=== PATIENT | female | born 1975 | race African-American/Black ===

== ENCOUNTER 2018-06-05 11:41 | Inpatient (IN) | payer OTHER ==
[2018-06-05 12:32] VITALS: BMI 26.5
--- NOTE | 2018-06-05 15:13 | HP ---
COWS - Scale Resting Pulse: 1= [place] 81-100 Sweatin= Chills/Flushing Restless Observation: 0= Sits Still Pupil Size: 0= Normal to Room Light Bone or Joint Aches: 2= Severe Diffuse Aches Runny Nose/ Eye Tearin= Runny Nose/Eyes GI Upset > 30mins: 2= Nausea/Diarrhea Tremor Observation: 1= Tremor [place], Not Seen Yawning Observation: 0= None Anxiety or Irritability: 2=Irritable/Anxious Goose Flesh Skin: 0=Smooth Skin COWS Score: 11 CIWA Score - Admission Criteria OAS Guidelines: Admission for Medically Managed Detox: Requires at least one of the followin. CIWA greater than 12 2. Seizures within the past 24 hours 3. Delirium tremens within the past 24 hours 4. Hallucinations within the past 24 hours 5. Acute intervention needed for co occurring medical disorder 6. Acute intervention needed for co occurring psychiatric disorder 7. Severe withdrawal that cannot be handled at a lower level of care (continued vomiting, continued diarrhea, abnormal vital signs) requiring intravenous medication and/or fluids 8. Admission ROS [facility] Chief Complaint: PATIENT PRESENTS WITH HEROIN WITHDRAWAL SX. Allergies/Adverse Reactions: Allergies Allergy/AdvReac Type Severity Reaction Status Date / Time aspirin Allergy Severe Difficulty Verified 06/05/18 14:56 Breathing Sulfa (Sulfonamide Allergy Severe Verified 06/05/18 14:58 Antibiotics) amoxicillin Allergy Verified 06/05/18 14:57 NSAIDS (Non-Steroidal Allergy Verified 06/05/18 14:58 Anti-Inflamma History of Present Illness: PATIENT PRESENTS WITH HEROIN WITHDRAWAL SX AND IS NEW TO [facility]. PATIENT HAS DONE DETOX IN PAST IN OTHER FACILITIES BUT NAMES OF FACILITIES NOT PROVIDED. PATIENT STARTED SNIFFING/INJECTING HEROIN 20 YEARS AGO. PATIENT INJECTS 4 BAGS OF HEROIN DAILY, LAST TIME SHE USED WAS LAST NIGHT. PATIENT UDS + FENTANYL/OPI. PATIENT DENIES H/O OVERDOSE. PATIENT TREATED IN [place] [facility] TODAY FOR RIGHT FINGER PAIN AND SWELLING AFTER CUT. PER ER NOTE, WOUND IS HEALING NICELY AND PATIENT REFUSED PAIN MEDS. GIVEN ANTIBIOTICS AND BOOSTRIX UTD. PATIENT DOES NOT HAVE ANTIBIOTICS WITH HER AND UNSURE OF NAME OF ABX. PATIENT IS SOCIAL DRINKER. DENIES USE OF OTHER SUBSTANCES. PMH INCLUDES HTN AND DM. PATIENT DENIES SI/HI AND SUICIDE ATTEMPTS. +TOBACCO USE. DENIES PMH OF MENTAL ILLNESS. PATIENT STATES SHE FORGOT MEDICATION NAME FOR HER HTN. REPORTS TAKING JANUVIA 50MG DAILY , LAST DOSE 06/03/18 AND TRULICITY 0.75MG INJECTION ONCE WEEKLY. PER PHARMACY LAST DISPENSE OF MEDICATION 06/02/18. PATIENT DOES NOT HAVE MEDICATION WITH HER BUT IS NOT DUE UNTIL 06/09/18. PATIENT STATES SHE WILL RESUME MEDICATION UPON DISCHARGE WHEN SHE GOES HOME. Exam Limitations: No Limitations - Ebola screening Have you traveled outside of the country in the last 21 days: No Have you had contact with anyone from an Ebola affected area: No Have you been sick,other than usual withdrawal symptoms: No Do you have a fever: No - Review of Systems Constitutional: Chills, Night Sweats, Unintentional Wgt. Loss EENT: reports: Nose Congestion Respiratory: reports: Cough Cardiac: reports: No Symptoms Reported GI: reports: Diarrhea, Nausea, Poor Fluid Intake, Abdominal cramping : reports: No Symptoms Reported Musculoskeletal: reports: Back Pain, Joint Pain, Muscle Pain Integumentary: reports: Other (S/P CUT TO RIGHT INDEX FINGER.) Neuro: reports: No Symptoms reported Endocrine: reports: Unexplained Weight Loss Hematology: reports: No Symptoms Reported Psychiatric: reports: Agitated, other (UNSURE OF DATE, KNOWS NAME AND PLACE ( [place])) Patient History - Patient Medical History Hx Anemia: No Hx Asthma: Yes Hx Chronic Obstructive Pulmonary Disease (COPD): No Hx Cancer: No Hx Cardiac Disorders: No Hx Congestive Heart Failure: No Hx Hypertension: Yes Hx Hypercholesterolemia: No Hx Pacemaker: No HX Cerebrovascular Accident: No Hx Seizures: No Hx Dementia: No Hx Diabetes: Yes Hx Gastrointestinal Disorders: No Hx Liver Disease: No Hx Genitourinary Disorders: No Hx Sexually Transmitted Disorders: No Hx Renal Disease (ESRD): No Hx Thyroid Disease: No Hx Human Immunodeficiency Virus (HIV): No (REFUSED TESTING, LAST TEST 2019- NEGATIVE) Hx Hepatitis C: No Hx Depression: No Hx Suicide Attempt: No Hx Bipolar Disorder: No Hx Schizophrenia: No - Patient Surgical History Past Surgical History: Yes Hx Section: Yes ( X 2) Anesthesia Reaction: Yes (REPORTS ALLERGIC REACTION) - PPD History Previous Implant?: Yes Documented Results: Negative w/o proof PPD to be Administered?: Yes - Reproductive History Patient is a Female of Child Bearing Age (11 -55 yrs old): Yes Patient : No - Smoking Cessation Smoking history: Current every day smoker Have you smoked in the past 12 months: Yes Aproximately how many cigarettes per day: 5 Hx Chewing Tobacco Use: No Initiated information on smoking cessation: Yes 'Breaking Loose' booklet given: 06/05/18 - Substance & Tx. History Hx Alcohol Use: No Hx Substance Use: Yes Substance Use Type: Heroin Hx Substance Use Treatment: Yes - Substances Abused Heroin Route: Injection Frequency: Daily Amount used: 4 BAGS Age of first use: 23 Date of Last Use: 06/04/18 Family Disease History - Family Disease History Family Disease History: Diabetes: Father, Mother, Heart Disease: Father, Mother Admission Physical Exam S - Vital Signs Vital Signs: Vital Signs - 24 hr 06/05/18 12:26 Temperature 98.5 F Pulse Rate 84 Respiratory 18 Rate Blood Pressure 158/94 - Physical General Appearance: Yes: Appropriately Dressed, Thin, Tremorous (MILD TREMORS FELT), Irritable HEENTM: Yes: Hearing grossly Normal, Normocephalic, Normal Voice, LIZ ( [place] PUPILS), Pharynx Normal, Nasal Congestion Respiratory: Yes: Chest Non-Tender, Lungs Clear, Normal Breath Sounds, No Respiratory Distress, No Accessory Muscle Use Neck: Yes: No masses,lesions,Nodules, Supple, Trachea in good position Breast: Yes: Breast Exam Deferred Cardiology: Yes: Regular Rhythm, Regular Rate, S1, S2 Abdominal: Yes: Normal Bowel Sounds, Non Tender, Flat, Soft Genitourinary: Yes: Within Normal Limits Back: Yes: Muscle Spasm Musculoskeletal: Yes: full range of Motion, Gait Steady, Back pain, Muscle Pain Extremities: Yes: Normal Range of Motion, Non-Tender, Tremors (MILD TREMORS FELT ) 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 TREATED AT [facility]. PATIENT DID NOT WANT DRESSING REMOVED. WAS ABLE TO SEE TIP OF FINGER WITH HEALING LACERATION. NO VISIBLE REDNESS OR DISCHARGE.) Lymphatic: Yes: Within Normal Limits - Diagnostic (1) Opioid dependence with withdrawal Current Visit: Yes Status: Acute (2) Diabetes 1.5, managed as type 2 Current Visit: Yes Status: Chronic (3) HTN (hypertension) Current Visit: Yes Status: Chronic Qualifiers: Hypertension type: unspecified Qualified Code(s): I10 - Essential (primary ) hypertension (4) Laceration of finger Current Visit: Yes Status: Acute Qualifiers: Encounter type: subsequent encounter Finger: index finger Damage to nail status: unspecified Foreign body presence: unspecified Laterality: right Qualified Code(s): S61.210D - Laceration without foreign body of right index finger without damage to nail, subsequent encounter (5) Tobacco use Current Visit: Yes Status: Chronic Cleared for Admission [facility] - Detox or Rehab [facility] Level of Care: Medically Managed Detox Regimen/Protocol: Methadone [facility] Breath Alcohol Content Breath Alcohol Content: 0 Urine Pregancy Test - Result Urine Test Results: Negative- NO Line Present Urine Drug Screen - Results Drug Screen Negative: No Urine Drug Screen Results: OPI-Opiates, FEN-Fentanyl Inpatient Rehab Admission - Rehab Decision to Admit Inpatient rehab admission?: No
[2018-06-05] MEDS ORDERED: IBUPROFEN 400 MG TABLET (FP) PO PRN (15:53)
[2018-06-05] MEDS ORDERED: NICOTINE POLACRILEX 2 MG GUM BC PRN (15:53)
[2018-06-05] MEDS ORDERED: P-EPHED 60MG/TRIPROLIDI 2.5MG TABLET PO PRN (15:53)
[2018-06-05] MEDS ORDERED: MAG HYDROX/AL HYDROX/SIMETH 30 ML UNIT-DOSE CUP PO PRN (15:53)
[2018-06-05] MEDS ORDERED: MAGNESIUM CITRATE 300 ML BOTTLE PO PRN (15:53)
[2018-06-05] MEDS ORDERED: MENTHOL/PHENOL 1 EACH UD MM PRN (15:53)
[2018-06-05] MEDS ORDERED: guaiFENesin/D-METHORPHAN HB 10 ML UNIT-DOSE CUPS PO PRN (15:53)
[2018-06-05] MEDS ORDERED: MAGNESIUM HYDROX 2400MG/30ML ORAL SUSPENSION 30 ML CUP PO PRN (15:53)
[2018-06-05] MEDS ORDERED: LOPERAMIDE HCL 2 MG CAPSULE PO PRN (15:53)
[2018-06-05] MEDS ORDERED: cloNIDine HCL 0.1 MG TABLET PO ONE (19:45)
[2018-06-05] MEDS ORDERED: METHADONE HCL 10 MG TABLET (FOR DETOX USE ONLY) PO ONE ×2 (19:45→23:00)
[2018-06-05] MEDS: diazePAM 5 MG TABLET PO PRN (20:35)
[2018-06-05] MEDS: CLINDAMYCIN HCL 150 MG CAPSULE (FP) PO SCH ×2 (22:41→23:10)
[2018-06-05] MEDS: THIAMINE HCL 100 MG TABLET (FP) PO SCH (22:42)
[2018-06-06] MEDS: CLINDAMYCIN HCL 150 MG CAPSULE (FP) PO SCH ×4 (05:51→23:04)
[2018-06-06] MEDS: PRENATAL VITAMINS W/ FOLIC ACID TABLET (FP) PO SCH (10:00)
[2018-06-06] MEDS: diazePAM 5 MG TABLET PO PRN ×3 (10:00→22:46)
[2018-06-06] MEDS ORDERED: METHADONE HCL 10 MG TABLET (FOR DETOX USE ONLY) PO ONE (10:00)
[2018-06-06] MEDS: NICOTINE 7 MG/24 HOURS TOPICAL PATCH TD SCH (10:02)
[2018-06-06] MEDS ORDERED: sitaGLIPtin PHOSPHATE 50 MG TABLET PO SCH (10:30)
--- NOTE | 2018-06-06 12:00 | PN ---
BHS COWS - Scale Resting Pulse: 0= [place] 80 or Below Sweatin=Flushed/Facial Moisture Restless Observation: 1= Difficult to Sit Still Pupil Size: 0= Normal to Room Light Bone or Joint Aches: 2= Severe Diffuse Aches Runny Nose/ Eye Tearin= Runny Nose/Eyes GI Upset > 30mins: 1= Stomach Cramp Tremor Observation of Outstretched Hands: 2= Slight Tremor Visible Yawning Observation: 2= >3x During Session Anxiety or Irritability: 2=Irritable/Anxious Goose Flesh Skin: 0=Smooth Skin COWS Score: 14 BHS Progress Note (SOAP) Subjective: irritable sweats shakes interrupted sleep vaginal foul odor discharge Objective: 06/06/18 11:58 Vital Signs Temperature 98.2 F 06/06/18 09:26 Pulse Rate 75 06/06/18 09:26 Respiratory Rate 18 06/06/18 09:26 Blood Pressure 146/95 06/06/18 09:26 O2 Sat by Pulse Oximetry (%) Laboratory Tests 06/05/18 21:53 POC Glucometer 133 ordered [email or web address], u/a pending results aaox3 ambulating no acute distress Assessment: 06/06/18 12:00 withdrawal sx Plan: continue detox increase fluids vaginal metrogel ordered januvia ordered lisinopril ordered
[2018-06-06] MEDS: LISINOPRIL 10 MG TABLET (FP) PO SCH (12:15)
--- NOTE | 2018-06-06 13:27 | EKG ---
Test Reason : Blood Pressure : / mmHG Vent. Rate : 077 BPM Atrial Rate : 077 BPM P-R Int : 128 ms QRS Dur : 086 ms QT Int : 406 ms P-R-T Axes : 051 066 047 degrees QTc Int : 459 ms NORMAL SINUS RHYTHM NONSPECIFIC T WAVE ABNORMALITY ABNORMAL ECG NO PREVIOUS ECGS AVAILABLE Confirmed by ALEXANDRO NORTH MD ([id number]) on 06/06/2018 1:27:56 PM Referred By: Confirmed By:ALEXANDRO NORTH MD
[2018-06-06] MEDS: ACETAMINOPHEN 325 MG TABLET (FP) PO PRN (14:10)
[2018-06-06 15:38] LABS: BASO % 0.6 % (0-2.0); EOS % 0.8 % (0-4.5); HEMATOCRIT 43.6 % (32.4-45.2); HEMOGLOBIN 15.2 GM/dL (10.7-15.3); LYMPH % 25.9 % (8-40); MCH 30.5 pg (25.7-33.7); MCHC 34.9 g/dl (32.0-36.0); MEAN CELL VOLUME 87.3 fl (80-96); MEAN PLT VOLUME 9.6 fl (7.5-11.1); MONO % 7.7 % (3.8-10.2); PLATELET COUNT 199 K/MM3 (134-434); RBC 4.99 M/mm3 (3.60-5.2); RDW 14.3 % (11.6-15.6); WHITE BLOOD COUNT 7.5 K/mm3 (4.0-10.0)
[2018-06-06 15:54] LABS: ALBUMIN 3.2 g/dl (3.4-5.0); ALK PHOS 91 U/L (45-117); ANION GAP 9 MMOL/L (8-16); BILIRUBIN,TOTAL 0.2 mg/dL (0.2-1); BLOOD UREA NITROGEN 10 mg/dL (7-18); CALCIUM 9.2 mg/dL (8.5-10.1); CHLORIDE 101 mmol/L (98-107); CO2 24 mmol/L (21-32); CREATININE 0.7 mg/dL (0.55-1.3); GLUCOSE,RANDOM 151 mg/dL (74-106); POTASSIUM 4.2 mmol/L (3.5-5.1); SGOT/AST 11 U/L (15-37); SGPT/ALT 27 U/L (13-61); SODIUM 134 mmol/L (136-145); TOT PROT 6.8 g/dl (6.4-8.2)
[2018-06-06 16:37] LABS: URINE APPEARANCE CLEAR; URINE BILIRUBIN NEGATIVE (<2.0 mg/dL); URINE GLUCOSE (UA) 1+ (NEGATIVE); URINE KETONE NEGATIVE (NEGATIVE); URINE LEUK ESTERASE NEGATIVE (NEGATIVE); URINE NITRITE NEGATIVE (NEGATIVE); URINE PROTEIN NEGATIVE (NEGATIVE); URINE UROBILINOGEN NEGATIVE mg/dL (0.2-1.0)
[2018-06-06 16:45] LABS: URINE COLOR LTYELLOW
[2018-06-06] MEDS: THIAMINE HCL 100 MG TABLET (FP) PO SCH (22:45)
[2018-06-06] MEDS: metroNIDAZOLE 0.75% VAGINAL GEL 70 GM TUBE VG SCH (22:46)
[2018-06-07] MEDS: CLINDAMYCIN HCL 150 MG CAPSULE (FP) PO SCH ×4 (07:49→23:37)
[2018-06-07] MEDS: sitaGLIPtin PHOSPHATE 25 MG TABLET (FP) PO SCH (07:50)
[2018-06-07] MEDS ORDERED: METHADONE HCL 5 MG TABLET (FOR DETOX USE ONLY) PO ONE (10:00)
[2018-06-07] MEDS: LISINOPRIL 10 MG TABLET (FP) PO SCH (10:53)
[2018-06-07] MEDS: NICOTINE 7 MG/24 HOURS TOPICAL PATCH TD SCH (10:53)
[2018-06-07] MEDS: PRENATAL VITAMINS W/ FOLIC ACID TABLET (FP) PO SCH (10:54)
[2018-06-07] MEDS: diazePAM 5 MG TABLET PO PRN ×2 (14:03→18:18)
--- NOTE | 2018-06-07 17:13 | PN ---
BHS COWS - Scale Resting Pulse: 1= ID 81-100 Sweatin=Flushed/Facial Moisture Restless Observation: 3= Extraneous Movement Pupil Size: 0= Normal to Room Light Bone or Joint Aches: 1= Mild Discomfort Runny Nose/ Eye Tearin= Nasal Congestion GI Upset > 30mins: 0= None Tremor Observation of Outstretched Hands: 2= Slight Tremor Visible Yawning Observation: 0= None Anxiety or Irritability: 2=Irritable/Anxious Goose Flesh Skin: 0=Smooth Skin COWS Score: 12 BHS Progress Note (SOAP) Subjective: foot pain from "my neuropathy" sweats Objective: 06/07/18 17:12 A & O x 3 ambulating steadily callus noted to foot irritable Vital Signs Temperature 91.9 F L 06/07/18 14:39 Pulse Rate 90 06/07/18 14:39 Respiratory Rate 18 06/07/18 14:39 Blood Pressure 123/74 06/07/18 14:39 O2 Sat by Pulse Oximetry (%) Laboratory Last Values WBC 7.5 K/mm3 (4.0-10.0) 06/06/18 13:23 RBC 4.99 M/mm3 (3.60-5.2) 06/06/18 13:23 Hgb 15.2 GM/dL (10.7-15.3) 06/06/18 13:23 Hct 43.6 % (32.4-45.2) 06/06/18 13:23 MCV 87.3 fl (80-96) 06/06/18 13:23 MCH 30.5 pg (25.7-33.7) 06/06/18 13:23 MCHC 34.9 g/dl (32.0-36.0) 06/06/18 13:23 RDW 14.3 % (11.6-15.6) 06/06/18 13:23 Plt Count 199 K/MM3 (134-434) 06/06/18 13:23 MPV 9.6 fl (7.5-11.1) 06/06/18 13:23 Absolute Neuts (auto) 4.9 K/mm3 (1.5-8.0) 06/06/18 13:23 Neutrophils % 65.0 % (42.8-82.8) 06/06/18 13:23 Lymphocytes % 25.9 % (8-40) 06/06/18 13:23 Monocytes % 7.7 % (3.8-10.2) 06/06/18 13:23 Eosinophils % 0.8 % (0-4.5) 06/06/18 13:23 Basophils % 0.6 % (0-2.0) 06/06/18 13:23 Nucleated RBC % 0 % (0-0) 06/06/18 13:23 Sodium 134 mmol/L (136-145) L 06/06/18 13:23 Potassium 4.2 mmol/L (3.5-5.1) 06/06/18 13:23 Chloride 101 mmol/L (98-107) 06/06/18 13:23 Carbon Dioxide 24 mmol/L (21-32) 06/06/18 13:23 Anion Gap 9 MMOL/L (8-16) 06/06/18 13:23 BUN 10 mg/dL (7-18) 06/06/18 13:23 Creatinine 0.7 mg/dL (0.55-1.3) 06/06/18 13:23 Creat Clearance w eGFR > 60 (>60) 06/06/18 13:23 POC Glucometer 119 UNITS (80-120) 06/07/18 07:11 Random Glucose 151 mg/dL (74-106) H 06/06/18 13:23 Calcium 9.2 mg/dL (8.5-10.1) 06/06/18 13:23 Total Bilirubin 0.2 mg/dL (0.2-1) 06/06/18 13:23 AST 11 U/L (15-37) L 06/06/18 13:23 ALT 27 U/L (13-61) 06/06/18 13:23 Alkaline Phosphatase 91 U/L (45-117) 06/06/18 13:23 Total Protein 6.8 g/dl (6.4-8.2) 06/06/18 13:23 Albumin 3.2 g/dl (3.4-5.0) L 06/06/18 13:23 Urine Color Ltyellow 06/06/18 00:00 Urine Appearance Clear 06/06/18 00:00 Urine pH 6.0 (5.0-8.0) 06/06/18 00:00 Ur Specific [place] 1.014 (1.010-1.035) 06/06/18 00:00 Urine Protein Negative (NEGATIVE) 06/06/18 00:00 Urine Glucose (UA) 1+ (NEGATIVE) H 06/06/18 00:00 Urine Ketones Negative (NEGATIVE) 06/06/18 00:00 Urine Blood Negative (NEGATIVE) 06/06/18 00:00 Urine Nitrite Negative (NEGATIVE) 06/06/18 00:00 Urine Bilirubin Negative (<2.0 mg/dL) 06/06/18 00:00 Urine Urobilinogen Negative mg/dL (0.2-1.0) 06/06/18 00:00 Ur Leukocyte Esterase Negative (NEGATIVE) 06/06/18 00:00 RPR Titer Nonreactive (NONREACTIVE) 06/06/18 13:23 high blood and urine glucose Assessment: 06/07/18 17:13 withdrawal sx diabetic neuropathy Plan: continue detox gabapentin for neuropathy increase hydration continue hyperglycemics
[2018-06-07] MEDS: GABAPENTIN 100 MG CAPSULE (FP) PO SCH (18:17)
[2018-06-07] MEDS: ACETAMINOPHEN 325 MG TABLET (FP) PO PRN (18:19)
[2018-06-07] MEDS: THIAMINE HCL 100 MG TABLET (FP) PO SCH (22:42)
[2018-06-07] MEDS: metroNIDAZOLE 0.75% VAGINAL GEL 70 GM TUBE VG SCH (22:43)
[2018-06-07] MEDS: MELATONIN 5 MG TABLETS PO PRN (22:44)
[2018-06-08] MEDS: sitaGLIPtin PHOSPHATE 25 MG TABLET (FP) PO SCH (06:24)
[2018-06-08] MEDS: CLINDAMYCIN HCL 150 MG CAPSULE (FP) PO SCH ×4 (06:24→23:45)
[2018-06-08] MEDS ORDERED: COLLOIDAL OATMEAL 1 BAR EACH TP PRN (08:59)
[2018-06-08] MEDS: diazePAM 5 MG TABLET PO PRN ×2 (09:18→17:39)
[2018-06-08] MEDS ORDERED: METHADONE HCL 5 MG TABLET (FOR DETOX USE ONLY) PO ONE (10:00)
[2018-06-08] MEDS: GABAPENTIN 100 MG CAPSULE (FP) PO SCH (10:26)
[2018-06-08] MEDS: LISINOPRIL 10 MG TABLET (FP) PO SCH (10:26)
[2018-06-08] MEDS: NICOTINE 7 MG/24 HOURS TOPICAL PATCH TD SCH (10:27)
[2018-06-08] MEDS: PRENATAL VITAMINS W/ FOLIC ACID TABLET (FP) PO SCH (10:27)
[2018-06-08] MEDS: CLOTRIMAZOLE 1% CREAM 15 GM TUBE TP SCH ×2 (10:28→22:14)
--- NOTE | 2018-06-08 18:05 | PN ---
S Progress Note (SOAP) Subjective: Vomited once (unwitnessed, patient stated she vomited after drinking orange juice and it was just the orange juice that she vomited), chills, tremor, sweating. Patient c/o itching between toes and requesting antifungal cream. She requests aveeno bar soap stating the hospital soap not too friendly with her skin. Objective: 06/08/18 18:04 Last Vital Signs Temp Pulse Resp BP Pulse Ox 98.3 F 84 18 122/63 06/08/18 13:32 06/08/18 13:32 06/08/18 13:32 06/08/18 13:32 Laboratory Tests 06/05/18 06/06/18 06/06/18 21:53 00:00 13:23 WBC 7.5 RBC 4.99 Hgb 15.2 Hct 43.6 MCV 87.3 MCH 30.5 MCHC 34.9 RDW 14.3 Plt Count 199 MPV 9.6 Absolute Neuts (auto) 4.9 Neutrophils % 65.0 Lymphocytes % 25.9 Monocytes % 7.7 Eosinophils % 0.8 Basophils % 0.6 Nucleated RBC % 0 Sodium Potassium Chloride Carbon Dioxide Anion Gap BUN Creatinine Creat Clearance w eGFR POC Glucometer 133 Random Glucose Calcium Total Bilirubin AST ALT Alkaline Phosphatase Total Protein Albumin Urine Color Ltyellow Urine Appearance Clear Urine pH 6.0 Ur Specific [place] 1.014 Urine Protein Negative Urine Glucose (UA) 1+ H Urine Ketones Negative Urine Blood Negative Urine Nitrite Negative Urine Bilirubin Negative Urine Urobilinogen Negative Ur Leukocyte Esterase Negative RPR Titer 06/06/18 06/06/18 06/07/18 13:23 13:23 07:11 WBC RBC Hgb Hct MCV MCH MCHC RDW Plt Count MPV Absolute Neuts (auto) Neutrophils % Lymphocytes % Monocytes % Eosinophils % Basophils % Nucleated RBC % Sodium 134 L Potassium 4.2 Chloride 101 Carbon Dioxide 24 Anion Gap 9 BUN 10 Creatinine 0.7 Creat Clearance w eGFR > 60 POC Glucometer 119 Random Glucose 151 H Calcium 9.2 Total Bilirubin 0.2 AST 11 L ALT 27 Alkaline Phosphatase 91 Total Protein 6.8 Albumin 3.2 L Urine Color Urine Appearance Urine pH Ur Specific [place] Urine Protein Urine Glucose (UA) Urine Ketones Urine Blood Urine Nitrite Urine Bilirubin Urine Urobilinogen Ur Leukocyte Esterase RPR Titer Nonreactive 06/08/18 16:42 WBC RBC Hgb Hct MCV MCH MCHC RDW Plt Count MPV Absolute Neuts (auto) Neutrophils % Lymphocytes % Monocytes % Eosinophils % Basophils % Nucleated RBC % Sodium Potassium Chloride Carbon Dioxide Anion Gap BUN Creatinine Creat Clearance w eGFR POC Glucometer 117 Random Glucose Calcium Total Bilirubin AST ALT Alkaline Phosphatase Total Protein Albumin Urine Color Urine Appearance Urine pH Ur Specific [place] Urine Protein Urine Glucose (UA) Urine Ketones Urine Blood Urine Nitrite Urine Bilirubin Urine Urobilinogen Ur Leukocyte Esterase RPR Titer Labs reviewed Assessment: 06/08/18 18:04 Withdrawal symptoms Plan: Continue detox Encouraged PO water hydration Tinea pedis: clotrimazole cream bid between toes
[2018-06-08] MEDS: THIAMINE HCL 100 MG TABLET (FP) PO SCH (22:10)
[2018-06-08] MEDS: metroNIDAZOLE 0.75% VAGINAL GEL 70 GM TUBE VG SCH (22:14)
[2018-06-09] MEDS: hydrOXYzine PAMOATE 50 MG CAPSULE (FP) PO PRN ×4 (06:16→21:46)
[2018-06-09] MEDS: CLINDAMYCIN HCL 150 MG CAPSULE (FP) PO SCH ×3 (06:39→18:00)
[2018-06-09] MEDS: sitaGLIPtin PHOSPHATE 25 MG TABLET (FP) PO SCH (06:39)
[2018-06-09] MEDS ORDERED: BACLOFEN 10 MG TABLET (FP) PO ONE (09:35)
[2018-06-09] MEDS ORDERED: METHADONE HCL 10 MG TABLET (FOR DETOX USE ONLY) PO ONE (10:00)
[2018-06-09] MEDS: GABAPENTIN 100 MG CAPSULE (FP) PO SCH (10:17)
[2018-06-09] MEDS: PRENATAL VITAMINS W/ FOLIC ACID TABLET (FP) PO SCH (10:17)
[2018-06-09] MEDS: LISINOPRIL 10 MG TABLET (FP) PO SCH (10:17)
[2018-06-09] MEDS: CLOTRIMAZOLE 1% CREAM 15 GM TUBE TP SCH ×2 (10:18→21:45)
[2018-06-09] MEDS: NICOTINE 7 MG/24 HOURS TOPICAL PATCH TD SCH (10:20)
--- NOTE | 2018-06-09 10:54 | PN ---
BHS Progress Note (SOAP) Subjective: anxiety cramps Objective: 06/09/18 10:54 Vital Signs Temperature 98.2 F 06/09/18 10:37 Pulse Rate 102 H 06/09/18 10:37 Respiratory Rate 16 06/09/18 10:37 Blood Pressure 152/76 06/09/18 10:37 O2 Sat by Pulse Oximetry (%) aaox3 ambulating no acute distress Assessment: 06/09/18 10:54 mild withdrawal sx Plan: continue detox increase fluids d/c in am
[2018-06-09] MEDS: ACETAMINOPHEN 325 MG TABLET (FP) PO PRN ×2 (12:57→18:14)
[2018-06-09] MEDS: BACLOFEN 10 MG TABLET (FP) PO SCH ×2 (15:57→21:44)
[2018-06-09] MEDS: metroNIDAZOLE 0.75% VAGINAL GEL 70 GM TUBE VG SCH (21:45)
[2018-06-09] MEDS: MELATONIN 5 MG TABLETS PO PRN (21:45)
[2018-06-09] MEDS: THIAMINE HCL 100 MG TABLET (FP) PO SCH (21:48)
[2018-06-10] MEDS: CLINDAMYCIN HCL 150 MG CAPSULE (FP) PO SCH ×2 (03:08→06:14)
[2018-06-10] MEDS ORDERED: METHADONE HCL 5 MG TABLET (FOR DETOX USE ONLY) PO ONE (06:00)
[2018-06-10] MEDS: BACLOFEN 10 MG TABLET (FP) PO SCH (06:14)
[2018-06-10] MEDS: sitaGLIPtin PHOSPHATE 25 MG TABLET (FP) PO SCH (06:29)
[2018-06-10 07:08] VITALS: BP 113/68; PULSE 80; TEMP 96.6
[2018-06-10] MEDS: LISINOPRIL 10 MG TABLET (FP) PO SCH (09:15)
[2018-06-10] MEDS: GABAPENTIN 100 MG CAPSULE (FP) PO SCH (09:15)
[2018-06-10] MEDS: PRENATAL VITAMINS W/ FOLIC ACID TABLET (FP) PO SCH (09:15)
--- NOTE | 2018-06-10 11:05 | DS ---
[facility] Detox Discharge Summary Admission Date: 06/05/18 Discharge Date: 06/10/18 - History Present History: Opioid Dependence - Physical Exam Results Vital Signs: Vital Signs Temperature 96.6 F L 06/10/18 07:05 Pulse Rate 80 06/10/18 07:05 Respiratory Rate 18 06/10/18 07:05 Blood Pressure 113/68 06/10/18 07:05 O2 Sat by Pulse Oximetry (%) - Treatment Hospital Course: Detox Protocol Followed, Detoxed Safely, Responded well, Discharged Condition Good, Rehab Referral Accepted - Medication Discharge Medications: Ambulatory Orders Sitagliptin Phosphate [Januvia] 1 tab PO DAILY 06/05/18 - Diagnosis (1) Laceration of finger Status: Acute Qualifiers: Encounter type: subsequent encounter Finger: index finger Damage to nail status: unspecified Foreign body presence: unspecified Laterality: right Qualified Code(s): S61.210D - Laceration without foreign body of right index finger without damage to nail, subsequent encounter (2) Opioid dependence with withdrawal Status: Chronic (3) Tinea pedis Status: Acute (4) HTN (hypertension) Status: Chronic Qualifiers: Hypertension type: unspecified Qualified Code(s): I10 - Essential (primary ) hypertension (5) Tobacco use Status: Chronic (6) Type 2 diabetes mellitus with hyperglycemia Status: Chronic - AMA Did Patient Leave Against Medical Advice: No (referred to [facility] program)
== END 2018-06-10 09:54 | disposition home or self-care (01) | DRG 897 ==
LOC: YASAS 11:41 → Y6N 19:04
PROVIDERS: ADMIT Surgery; ATTEND Surgery
PROC: HZ2ZZZZ Detoxification Services for Substance Abuse Treatment (ICD-10-PCS; principal; 2018-06-05)
DX: F11.23 Opioid dependence with withdrawal (principal); F17.210 Nicotine dependence, cigarettes, uncomplicated; I10 Essential (primary) hypertension; B35.3 Tinea pedis; E11.65 Type 2 diabetes mellitus with hyperglycemia; E11.40 Type 2 diabetes mellitus with diabetic neuropathy, unspecified; J45.909 Unspecified asthma, uncomplicated; S61.210D Laceration without foreign body of right index finger without damage to nail, subsequent encounter; X58.XXXD Exposure to other specified factors, subsequent encounter; Z88.1 Allergy status to other antibiotic agents; Z88.2 Allergy status to sulfonamides; Z88.6 Allergy status to analgesic agent
CPT/HCPCS: 36415; 80053; 81003; 82962; 85025; 86593; 93005; 93010; J0475; J0735